=== PATIENT | female | born 1965 | race Caucasian/White ===

== ENCOUNTER 2019-11-07 07:00 | Outpatient (CLI) | payer BC, SELFPAY ==
[2019-11-07 10:45] LABS: Calculated LDL 158 mg/dL; Cholesterol 225 mg/dL (<200); HDL Cholesterol 43 mg/dL (40-60); Triglyceride 120 mg/dL (<150)
[2019-11-07 11:10] LABS: Hemoglobin A1C 6.2 % (3.8-5.6)
== END 2019-11-07 07:20 ==
PROVIDERS: PCP Family Medicine; Visit Provider Nurse Practitioner
DX: Z13.1 Encounter for screening for diabetes mellitus (principal); Z13.6 Encounter for screening for cardiovascular disorders
CPT/HCPCS: 36415; 80061; 83036

== ENCOUNTER 2019-11-09 03:56 | Outpatient (CLI) | payer BC, SELFPAY ==
--- NOTE | 2019-11-30 08:13 | ZIOP_ITS ---
Date of service: 11/30/19 Time of Service: 08:13 [employer] Program Management Specialist Note: This is a 2-week Holter monitor ordered for the indication of syncope. ?Patient was in normal sinus rhythm for the majority of the recording. ?There were 4 episodes of supraventricular tachycardia with the longest lasting 7 beats. ?There were isolated supraventricular ectopic beats. ?There were no episodes of ventricular tachycardia and isolated ventricular ectopic beats. ?There were no pauses greater than 3 seconds, no evidence of high degree heart block and no episodes of atrial fibrillation. ?Patient triggered events were associated with sinus rhythm, sinus tachycardia and single ventricular or supraventricular ectopic beats.
== END 2019-11-09 04:16 ==
PROVIDERS: PCP Family Medicine; Visit Provider Nurse Practitioner
DX: R55 Syncope and collapse (principal); I47.1 Supraventricular tachycardia
CPT/HCPCS: 0296T

== ENCOUNTER 2020-04-09 02:33 | Outpatient (CLI) | payer BC, SELFPAY ==
--- NOTE | 2020-04-09 11:15 | DI.MAMMO_ITS ---
EXAM: MG MAMMO SCREENING CLINICAL HISTORY: screening Z12.39 TECHNIQUE: Mammograms were interpreted according to the usual protocol including computer analysis w [employer] CAD system, tomosynthesis and C-view imaging. COMPARISON: FINDINGS: The breasts are of moderate density with fairly symmetrical distribution of fibroglandular tissue. N o dominant mass or clumped microcalcification is identified in either breast. The current examinatio n is compared with previous studies including March 2017 and there has been no gross interval change ap pearance comparison the previous examinations. IMPRESSION: No specific evidence of malignancy at this time. Routine screening examinations are suggested at yea rly intervals in this age group according to the ACS ACR guidelines. BI-RADS Cat 1 - Negative: Breast Density - Category B - Scattered areas of fibroglandular density:
== END 2020-04-09 02:53 ==
PROVIDERS: PCP Family Medicine; Visit Provider Family Medicine
DX: Z12.31 Encounter for screening mammogram for malignant neoplasm of breast (principal)
CPT/HCPCS: 77063; 77067

== ENCOUNTER 2020-12-13 08:32 | Outpatient (CLI) | payer BC, SELFPAY ==
[2020-12-14 14:39] LABS: COVID-19 RT-PCR UVMMC Result Negative (Negative)
== END 2020-12-13 08:33 | disposition home or self-care (01) ==
LOC: LBO 08:33
PROVIDERS: PCP Family Medicine; Visit Provider Family Medicine
DX: Z20.822 Contact with and (suspected) exposure to COVID-19 (principal)
CPT/HCPCS: U0003

== ENCOUNTER 2022-06-01 04:32 | Outpatient (CLI) | payer BC, SELFPAY ==
[2022-06-01 12:19] LABS: HGB 13.6 g/dL (11.2-15.7); MCH 29.5 pg (27.0-33.0); MCHC 33.2 % (32.0-36.0); MCV 89 fL (80-95); MPV 9.8 fL (8.0-11.0); Platelet Count 277 10^3/uL (130-400); RBC 4.61 10^6/uL (3.93-5.22); RDW 13.1 % (11.7-14.6); RDW-SD 42.5 fL; WBC 6.34 10^3/uL (4.4-10.8)
[2022-06-01 12:37] LABS: Calculated LDL 158 mg/dL (<100); Cholesterol 232 mg/dL (<200); HDL Cholesterol 61 mg/dL (40-60); Triglyceride 67 mg/dL (<150)
[2022-06-01 12:46] LABS: Hemoglobin A1C 6.3 % (<5.7)
== END 2022-06-01 04:33 | disposition home or self-care (01) ==
LOC: LOS 04:32
PROVIDERS: PCP Family Medicine; Visit Provider Nurse Practitioner
DX: E61.1 Iron deficiency (principal); Z13.6 Encounter for screening for cardiovascular disorders; Z13.1 Encounter for screening for diabetes mellitus
CPT/HCPCS: 36415; 80061; 85027; 83036

== ENCOUNTER → 2022-06-04 01:43 | Outpatient (CLI) | payer BC, SELFPAY ==
--- NOTE | 2022-06-04 13:04 | DI.MAMMO_ITS ---
Exam(s) MAMMO SCREENING EXAM: MAMMO SCREENING CLINICAL HISTORY: screening, Z12.39 TECHNIQUE: Bilateral full field digital CC and MLO mammographic images were obtained with 3D tomosyn thesis and utilizing computer aided detection (CAD). COMPARISON: Available for comparison. FINDINGS: Masses/Architectural Distortion: There is a new asymmetric density in the posterior outer left breast seen on the craniocaudad view. It appears to lie in the superior half of the left breast. Spot com pression views are requested for further evaluation. Microcalcifications: No suspicious pleomorphic-type are seen. Skin Thickening/Nipple Retraction: None. IMPRESSION: 1. New round asymmetric density in the posterior outer left breast on the craniocaudad view. 2. Additional views are requested for further evaluation. Ultrasound should be obtained at that time . BI-RADS Category 0 - Assessment Incomplete: Need additional imaging evaluation Breast Density - Category B - Scattered areas of fibroglandular density Breast density category C or D implies that the patient has dense breast tissue. Dense breast tissue is very common and is not abnormal but dense breast tissue can make it harder to find cancer on a ma mmogram. Also, dense breast tissue may increase their breast cancer risk. This information about the result of the mammogram report was provided to the patient to raise their awareness. Use this report when you speak with the patient about their risks for breast cancer, which includes their family hist ory. At that time, you may recommend for more screening tests (Ultrasound or MRI) as they might be us eful based on their risk. A negative radiographic report should not delay biopsy if a dominant or clinically suspicious mass is present. Up to ten percent of cancers are not identified on mammography. A negative report may reinforce clinical impression. Adenosis and dense breasts may obscure an underlying neoplasm. False positive reports average 6 to 10%. Patient will receive a letter notifying them of these results.
== END ==
PROVIDERS: PCP Family Medicine; Visit Provider Nurse Practitioner
DX: Z12.31 Encounter for screening mammogram for malignant neoplasm of breast (principal); R92.8 Other abnormal and inconclusive findings on diagnostic imaging of breast
CPT/HCPCS: 77063; 77067

== ENCOUNTER → 2022-06-09 01:51 | Outpatient (CLI) | payer BC, SELFPAY ==
--- NOTE | 2022-06-09 09:30 | DI.MAMMO_ITS ---
Exam(s) MG MAMMO SCREEN CALL BACK UNI US BREAST LT COMPLETE EXAM: MG MAMMO SCREEN CALL BACK UNI and U/S breast LT complete CLINICAL HISTORY: F/U ABNL MAMMO, NEW ROUND ASYMMETRIC DENSITY IN POSTERIOR OUTER LT BREAST. TECHNIQUE: Craniocaudal and mediolateral oblique Full Field Digital Mammography views of the left br east with Computer Aided Diagnosis followed by Tomosynthesis and left breast ultrasound. COMPARISON: Comparison is made with prior examinations. FINDINGS: Mammography/Tomosynthesis: Masses/Architectural Distortion: The area of concern is somewhat less prominent compared to the initi al examination. Microcalcifictions: No suspicious pleomorphic-type are seen. Skin Thickening/Nipple Retraction: None. Complete left breast US: Echotexture: Normal appearance of the glandular tissue. Shadowing: No suspicious foci. Cyst: None. Solid lesions: None seen. Ductal dilation: None. IMPRESSION: 1. No definite evidence for malignancy at this time. 2. A 3 month follow-up left mammogram is recommended for re-evaluation. 3. The findings were discussed with the patient on the date of the examination. BI-RADS Category 3 - Probably Benign Finding: Recommend follow-up imaging in 3 months Breast Density - Category B - Scattered areas of fibroglandular density Breast density Category C or D implies that the patient has dense breast tissue. Dense breast tissue can make it harder to find cancer on a mammogram. Dense breast tissue is also associated with an incr eased risk of breast cancer. This information about the result of the mammogram report was provided to the patient to raise their awareness. Use this report when you speak with the patient about their risks for breast cancer, which includes their family history. At that time, you may recommend additional screening tests (Ultrasoun d or MRI) as these tests may add significant information. A negative radiographic report should not delay biopsy if a dominant or clinically suspicious mass is present. Up to ten percent of cancers are not identified on mammography. A negative report may reinforce clinical impression. Adenosis and dense breasts may obscure an underlying neoplasm. False positive reports average 6 to 10%. Patient will receive a letter notifying them of these results.
== END ==
PROVIDERS: PCP Family Medicine; Visit Provider Family Medicine
DX: Z12.31 Encounter for screening mammogram for malignant neoplasm of breast (principal); R92.8 Other abnormal and inconclusive findings on diagnostic imaging of breast; N64.59 Other signs and symptoms in breast
CPT/HCPCS: 76642; 77063; 77067